=== PATIENT | male | born 1970 | race Hispanic/Latino ===

== ENCOUNTER 2023-12-28 20:34 | Emergency (ER) | payer BC ==
[~2023-12-28] VITALS: Ht 175.3 cm; Wt 97.5 kg
[2023-12-28 22:01] LABS: BASOPHILS # (AUTO) 0.07 K/uL (0.00-0.20); BASOPHILS % (AUTO) 0.7 % (0.0-5.0); EOSINOPHILS # (AUTO) 0.29 K/uL (0.00-0.70); EOSINOPHILS % (AUTO) 3.1 % (0.0-8.0); HEMATOCRIT 41.4 % (42-54); IMMATURE GRANULOCYTE ABSOLUTE 0.03 K/uL (0-1); LYMPHOCYTES # (AUTO) 3.2 K/uL (1.0-4.8); LYMPHOCYTES % (AUTO) 33.5 % (21.0-51.0); MEAN CORPUSCULAR HEMOGLOBIN 29.4 pg (27.0-33.0); MEAN CORPUSCULAR HGB CONC 32.9 g/dL (32.0-36.0); MEAN CORPUSCULAR VOLUME 89.4 fL (79-99); MONOCYTES # (AUTO) 0.7 K/uL (0.1-1.0); MONOCYTES % (AUTO) 7.2 % (3.0-13.0); NEUTROPHILS # (AUTO) 5.2 K/uL (1.8-7.7); NEUTROPHILS % (AUTO) 55.2 % (40.0-77.0); PLATELET COUNT (AUTO) 343 K/uL (130-400); RED BLOOD CELL COUNT(AUTO) 4.63 MIL/uL (4.50-6.20); RED CELL DISTRIBUTION WIDTH 12.7 % (11.0-15.5); WHITE BLOOD COUNT (AUTO) 9.4 K/uL (4.8-10.8)
[2023-12-28 22:02] LABS: APPEARANCE,URINE CLEAR (CLEAR); BILIRUBIN,URINE NEGATIVE (NEGATIVE); COLOR,URINE LIGHT-YELLOW (YELLOW); GLUCOSE, URINE (UA) NEGATIVE (NEGATIVE); KETONES,URINE NEGATIVE (NEGATIVE); LEUKOCYTE ESTERASE ,URINE NEGATIVE Leu/uL (NEGATIVE); NITRATE,URINE NEGATIVE (NEGATIVE); OCCULT BLOOD,URINE NEGATIVE (NEGATIVE); PH,URINE 6.5 (5.0-8.0); PROTEIN,URINE NEGATIVE (NEGATIVE); UROBILINOGEN,URINE 0.2 mg/dL (0.2-1.0)
[2023-12-28 22:04] LABS: ADD UA MICROSCOPIC YES
[2023-12-28 22:06] LABS: BACTERIA,URINE RARE /HPF (None Seen); MUCUS,URINE RARE LPF (None Seen); SQUAMOUS EPITHELIAL CELL,UR RARE /HPF (0-2); WBC,URINE 0-1 /HPF (0-1)
[2023-12-28 22:21] LABS: INR 1.05 (0.85-1.15); POTASSIUM 3.7 mmol/L (3.5-5.1); PROTHROMBIN TIME 11.3 SEC (9.6-11.6)
[2023-12-28 22:22] LABS: PARTIAL THROMBOPLASTIN TIME 28.1 SEC (26.3-35.5)
[2023-12-28 22:25] LABS: ALBUMIN 3.7 g/dL (3.5-5.0); BILIRUBIN,TOTAL 0.5 mg/dL (0.2-1.0); TOTAL PROTEIN, SERUM 7.4 g/dL (6.0-8.3)
[2023-12-29] MEDS ORDERED: LACT10SO9 PO (00:22)
[2023-12-29] MEDS: BisaCODYL 10 MG SUPP.RECT RC ONE (01:14)
[2023-12-29] MEDS: LACTULOSE 20 GM/30 ML UDCUP PO ONE (01:14)
[2023-12-29] MEDS: ketOROlac 15MG/ML VIAL (15MG/ML) IM ONE (01:49)
[2023-12-29] MEDS: hydroCORTISONE 25 MG SUPPOSITORY PR SCH (01:50)
[2023-12-29 01:55] VITALS: BP 142/80; PULSE 67; RESP 18; TEMP 97.7; O2SAT 97
[2023-12-29] MEDS ORDERED: KETO10TA2 PO (02:27)
[2023-12-29] MEDS ORDERED: HC2530C TP (02:27)
== END 2023-12-29 02:48 | disposition home or self-care (01) ==
LOC: EDH 20:34
DX: K64.9 Unspecified hemorrhoids (principal); K59.00 Constipation, unspecified; I10 Essential (primary) hypertension; I25.2 Old myocardial infarction; Z86.73 Personal history of transient ischemic attack (TIA), and cerebral infarction without residual deficits
CPT/HCPCS: 99284; 80053; 85025; 85610; 85730; 81001; 36415; 74018; 96372; J1885

== ENCOUNTER 2024-01-22 02:31 | Inpatient (IN) | payer BC ==
[~2024-01-22] VITALS: Ht 175.3 cm; Wt 92.1 kg
[~2024-01-22 02:31] MED LIST: HC2530C TP; KETO10TA2 PO; LACT10SO9 PO
[2024-01-22 12:10] VITALS: BP 110/68; PULSE 72; RESP 18; TEMP 98.9
[2024-01-22 12:30] VITALS: O2SAT 98
[2024-01-22] MEDS ORDERED: MAG/ALUM/SIMETH 30 ML UDCUP PO PRN (13:30)
[2024-01-22] MEDS ORDERED: DiphenhydrAMINE HCL 25 MG CAPSULE PO PRN (13:30)
[2024-01-22] MEDS ORDERED: NITROGLYCERIN 0.4 MG SL TAB SL PRN (13:30)
[2024-01-22] MEDS ORDERED: acetaMINOPHEN 325 MG TAB PO PRN (13:30)
[2024-01-22] MEDS: metRONIDazole 500MG/100ML BAG 100 ML IV SCH (13:30)
[2024-01-22] MEDS: cefTAZidime PENTAHYDRATE 2 GM/VIAL IVPB SCH (13:30)
[2024-01-22] MEDS ORDERED: guaiFENesin-DM 200/20MG 10ML PO PRN (13:30)
[2024-01-22] MEDS ORDERED: hydrALAZine 20MG/ML VIAL IV PRN (13:30)
[2024-01-22] MEDS ORDERED: ondanSETRON 4MG INJ IV PRN (13:30)
[2024-01-22 14:03] LABS: BASOPHILS # (AUTO) 0.07 K/uL (0.00-0.20); BASOPHILS % (AUTO) 0.9 % (0.0-5.0); EOSINOPHILS # (AUTO) 0.37 K/uL (0.00-0.70); EOSINOPHILS % (AUTO) 4.9 % (0.0-8.0); HEMATOCRIT 37.8 % (42-54); IMMATURE GRANULOCYTE ABSOLUTE 0.01 K/uL (0-1); LYMPHOCYTES # (AUTO) 2.6 K/uL (1.0-4.8); LYMPHOCYTES % (AUTO) 34.3 % (21.0-51.0); MEAN CORPUSCULAR HGB CONC 32.8 g/dL (32.0-36.0); MEAN CORPUSCULAR VOLUME 88.5 fL (79-99); MONOCYTES # (AUTO) 0.7 K/uL (0.1-1.0); MONOCYTES % (AUTO) 8.7 % (3.0-13.0); NEUTROPHILS # (AUTO) 3.9 K/uL (1.8-7.7); NEUTROPHILS % (AUTO) 51.1 % (40.0-77.0); PLATELET COUNT (AUTO) 306 K/uL (130-400); RED BLOOD CELL COUNT(AUTO) 4.27 MIL/uL (4.50-6.20); RED CELL DISTRIBUTION WIDTH 12.9 % (11.0-15.5); WHITE BLOOD COUNT (AUTO) 7.6 K/uL (4.8-10.8)
[2024-01-22] MEDS: morPHINE 4 MG SYG IV PRN (14:14)
[2024-01-22 14:26] LABS: ALBUMIN 3.3 g/dL (3.5-5.0); BILIRUBIN,TOTAL 0.4 mg/dL (0.2-1.0); CREATININE 0.9 mg/dL (0.5-1.3); POTASSIUM 3.5 mmol/L (3.5-5.1); THYROID STIMULATING HORMONE 2.36 uIU/mL (0.36-3.74); TOTAL PROTEIN, SERUM 6.7 g/dL (6.0-8.3)
[2024-01-22 16:00] VITALS: BP 130/73; PULSE 55; RESP 18; TEMP 98
[2024-01-22] MEDS ORDERED: DOCU100C33 PO (16:41)
[2024-01-22] MEDS ORDERED: LEVE750T4 PO (16:41)
[2024-01-22] MEDS ORDERED: CARV12.511 PO ×2 (16:41)
[2024-01-22] MEDS ORDERED: LOSA50TA64 PO (16:46)
[2024-01-22] MEDS ORDERED: SENN8.6T32 PO (16:46)
[2024-01-22] MEDS ORDERED: Buspirone (16:46)
[2024-01-22] MEDS ORDERED: GABA-529 PO (16:46)
[2024-01-22] MEDS ORDERED: LACTULOSE 20 GM/30 ML UDCUP PO PRN (17:00)
[2024-01-22] MEDS: ketOROlac 15MG/ML VIAL (15MG/ML) IV ONE (17:45)
[2024-01-22 19:00] VITALS: BP 128/75; PULSE 64; RESP 18; TEMP 98.4
[2024-01-22 20:00] VITALS: O2SAT 98
[2024-01-22] MEDS ORDERED: ketOROlac 15MG/ML VIAL (15MG/ML) IV ONE (20:00)
[2024-01-22] MEDS: FAMOTIDINE 20MG VIAL IV SCH (21:17)
[2024-01-22] MEDS: GABApentin 100 MG CAPSULE PO SCH (21:18)
[2024-01-22] MEDS: leveTIRACEtam 250 MG TABLET PO SCH (21:18)
[2024-01-22] MEDS: doCUSate SODIUM 100 MG CAP PO SCH (21:18)
[2024-01-22] MEDS: carVEDIlol 12.5 MG TABLET PO SCH (21:19)
[2024-01-22] MEDS: LACTATED RINGERS 1000ML 1,000 ML IV SCH (21:27)
[2024-01-23] VITALS (26 sets, daily range): BP systolic 94–148; BP diastolic 55–91; PULSE 54–91; RESP 13–18; TEMP 97.5–100.9; O2SAT 98
[2024-01-23] MEDS: EPINEPHrine PF 1MG (1:1,000) 1 MG/ML AMP ONE
[2024-01-23] MEDS: LIDOCAINE HCL 1% 20 ML VIAL ONE
[2024-01-23] MEDS: BUPIvacaine/PF 0.25% 30ML VIAL IJ ONE
[2024-01-23] MEDS: acetaMINOPHEN 1,000 MG/100 ML VIAL IV ONE ×2 (08:51→15:09)
[2024-01-23] MEDS: LoSARTan 50 MG TABLET PO SCH (09:00)
[2024-01-23] MEDS ORDERED: ondanSETRON 4MG INJ ONE (12:05)
[2024-01-23] MEDS ORDERED: GLYCOPYRROLATE 0.2 MG/ML 5 ML VIAL ONE (12:05)
[2024-01-23] MEDS ORDERED: NEOSTIGMINE METHYLSULFATE 1MG/ML IV ONE (12:05)
[2024-01-23] MEDS ORDERED: MIDAZOLAM HCL 1 MG/ML 2ML VIAL ONE (12:05)
[2024-01-23] MEDS ORDERED: LIDOCAINE PF 100MG/5ML (2%) SYRINGE 5ML ONE (12:05)
[2024-01-23] MEDS ORDERED: dexaMETHasone SOD PHOSPHATE 10MG/ML 1ML VIAL ONE (12:05)
[2024-01-23] MEDS ORDERED: proPOFol 10 MG/ML 20ML VIAL IV ONE (12:05)
[2024-01-23] MEDS ORDERED: SUCCINYLCHOLINE CHLORIDE 20 MG/ML 10 ML VIAL ONE (12:05)
[2024-01-23] MEDS ORDERED: rocuRONium bROMide 10MG/1ML 5ML VL ONE (12:06)
[2024-01-23] MEDS ORDERED: FENTanyl CITRate PF 50 MCG/1 ML 2ML VIAL ONE ×3 (12:07→14:04)
[2024-01-23] MEDS ORDERED: ketOROlac 30MG VIAL (30MG/ML) ONE (14:35)
[2024-01-23] MEDS ORDERED: NEOMY SULF/BACITRAC ZN/POLY OINT 30GM TUBE TP ONE (14:35)
[2024-01-23] MEDS: MEPERIDINE-PF 25 MG/ML SYG ONE (15:09)
[2024-01-23] MEDS: ketOROlac 15MG/ML VIAL (15MG/ML) IV STA (17:27)
[2024-01-24] VITALS (10 sets, daily range): BP systolic 104–126; BP diastolic 58–75; PULSE 60–78; RESP 16–23; TEMP 97.7–99.6; O2SAT 96–98
[2024-01-24 04:33] LABS: HEMATOCRIT 36.9 % (42-54); MEAN CORPUSCULAR HGB CONC 33.3 g/dL (32.0-36.0); RED BLOOD CELL COUNT(AUTO) 4.24 MIL/uL (4.50-6.20); RED CELL DISTRIBUTION WIDTH 12.5 % (11.0-15.5); WHITE BLOOD COUNT (AUTO) 11.1 K/uL (4.8-10.8)
[2024-01-24 04:39] LABS: CREATININE 0.9 mg/dL (0.5-1.3); POTASSIUM 3.6 mmol/L (3.5-5.1)
[2024-01-24] MEDS: acetaMINOPHEN 1,000 MG/100 ML VIAL IV PRN (11:42)
[2024-01-24] MEDS: LACTULOSE 20 GM/30 ML UDCUP PO PRN (20:10)
[2024-01-24] MEDS: morPHINE 2 MG SYG IV PRN (21:54)
[2024-01-24] MEDS: hydroMORPHone 0.5 MG SYG (0.5MG/0.5ML) IVP ONE (23:25)
[2024-01-25] VITALS (8 sets, daily range): BP systolic 101–117; BP diastolic 50–67; PULSE 63–73; RESP 18–20; TEMP 98.4–100.1; O2SAT 96
[2024-01-25 03:43] LABS: BASOPHILS # (AUTO) 0.06 K/uL (0.00-0.20); BASOPHILS % (AUTO) 0.4 % (0.0-5.0); EOSINOPHILS # (AUTO) 0.08 K/uL (0.00-0.70); EOSINOPHILS % (AUTO) 0.6 % (0.0-8.0); IMMATURE GRANULOCYTE ABSOLUTE 0.05 K/uL (0-1); LYMPHOCYTES # (AUTO) 2.5 K/uL (1.0-4.8); LYMPHOCYTES % (AUTO) 17.9 % (21.0-51.0); MEAN CORPUSCULAR HEMOGLOBIN 29.7 pg (27.0-33.0); MEAN CORPUSCULAR HGB CONC 33.5 g/dL (32.0-36.0); MEAN CORPUSCULAR VOLUME 88.5 fL (79-99); NEUTROPHILS # (AUTO) 10.3 K/uL (1.8-7.7); NEUTROPHILS % (AUTO) 73.7 % (40.0-77.0); PLATELET COUNT (AUTO) 315 K/uL (130-400); RED BLOOD CELL COUNT(AUTO) 4.18 MIL/uL (4.50-6.20); RED CELL DISTRIBUTION WIDTH 13.1 % (11.0-15.5); WHITE BLOOD COUNT (AUTO) 13.9 K/uL (4.8-10.8)
[2024-01-25] MEDS ORDERED: HEParin 5,000 UNIT VIAL SQ SCH (18:00)
[2024-01-26 03:43] VITALS: BP 105/64; PULSE 71; RESP 20; TEMP 98.4
[2024-01-26 05:11] LABS: BASOPHILS # (AUTO) 0.05 K/uL (0.00-0.20); BASOPHILS % (AUTO) 0.4 % (0.0-5.0); EOSINOPHILS # (AUTO) 0.18 K/uL (0.00-0.70); EOSINOPHILS % (AUTO) 1.3 % (0.0-8.0); HEMATOCRIT 34.8 % (42-54); IMMATURE GRANULOCYTE ABSOLUTE 0.06 K/uL (0-1); LYMPHOCYTES # (AUTO) 2.9 K/uL (1.0-4.8); LYMPHOCYTES % (AUTO) 21.1 % (21.0-51.0); MEAN CORPUSCULAR HGB CONC 32.8 g/dL (32.0-36.0); MEAN CORPUSCULAR VOLUME 88.5 fL (79-99); MONOCYTES # (AUTO) 1.2 K/uL (0.1-1.0); MONOCYTES % (AUTO) 8.9 % (3.0-13.0); NEUTROPHILS # (AUTO) 9.2 K/uL (1.8-7.7); NEUTROPHILS % (AUTO) 67.9 % (40.0-77.0); PLATELET COUNT (AUTO) 313 K/uL (130-400); RED BLOOD CELL COUNT(AUTO) 3.93 MIL/uL (4.50-6.20); WHITE BLOOD COUNT (AUTO) 13.6 K/uL (4.8-10.8)
[2024-01-26 08:00] VITALS: BP 122/78; PULSE 68; RESP 18; TEMP 98.6; O2SAT 97
[2024-01-26 09:33] VITALS: BP 122/78
[2024-01-26] MEDS: acetaMINOPHEN 500 MG TABLET PO PRN (09:34)
[2024-01-26] MEDS: LORazepam 2 MG/ML 1 ML VIAL IVP ONE ×2 (10:11→10:24)
[2024-01-26] MEDS ORDERED: GADOTERATE MEGLUMINE 10 MMOL/20 ML VIAL IV ONE (14:14)
[2024-01-26] MEDS: acetaMINOPHEN WITH coDEINE 1 TAB TAB PO ONE (17:27)
== END 2024-01-26 19:15 | disposition home or self-care (01) | DRG 393 ==
LOC: 4BH 12:07
PROVIDERS: ADMIT Hospitalist; ATTEND Hospitalist
PROC: 0D7Q8ZZ Dilation of Anus, Via Natural or Artificial Opening Endoscopic (ICD-10-PCS; 2024-01-23)
PROC: 0DBQ8ZX Excision of Anus, Via Natural or Artificial Opening Endoscopic, Diagnostic (ICD-10-PCS; 2024-01-23)
PROC: 0DBP8ZX Excision of Rectum, Via Natural or Artificial Opening Endoscopic, Diagnostic (ICD-10-PCS; principal; 2024-01-23 16:40)
DX: K61.1 Rectal abscess (principal); M72.6 Necrotizing fasciitis; K62.4 Stenosis of anus and rectum; I10 Essential (primary) hypertension; E66.9 Obesity, unspecified; Z86.73 Personal history of transient ischemic attack (TIA), and cerebral infarction without residual deficits; F40.240 Claustrophobia; N41.9 Inflammatory disease of prostate, unspecified; F41.9 Anxiety disorder, unspecified; J98.2 Interstitial emphysema; Z87.891 Personal history of nicotine dependence
CPT/HCPCS: 36415; 72195; 72197; 80048; 80053; 84443; 85025; 85027; 87040; A4606; G0378; J0171; J0330; J0713; J1100; J1171; J1885; J2002; J2060; J2175; J2250; J2270; J2405; J2704; J2710; J3010; J3490; A4216; A4222; A4223; A4600; A4649; A4930; A6251; A9575; J0665